=== PATIENT | male | born 1935 | race Caucasian/White ===

== ENCOUNTER 2023-09-30 20:51 | Emergency (ER) | payer MEDICARE, OTHER, SELFPAY ==
[2023-09-30 20:59] VITALS: BP 198/97
[2023-09-30 21:45] LABS: % Basophils 0.3 % (0-2); % Eosinophils 0.1 % (0-6); % Immature Granulocytes 0.4 % (0-0.5); % Lymphocytes 11.5 % (20.5-51.1); % Monocytes 11.5 % (1.7-9.3); % Neutrophils 76.2 % (42.2-75.2); Absolute Lymphocytes 0.8 10^3/uL (1.2-3.4); Absolute Monocytes 0.8 10^3/uL (0.1-0.6); Absolute Neutrophils 5.5 10^3/uL (1.4-6.5); Hematocrit 38.6 % (39.0-52.0); Hemoglobin 13.4 g/dL (13.0-18.0); Mean Corp Hgb Conc. 34.7 g/dL (33.0-37.0); Mean Corpuscular Volume 89.4 fL (80.0-94.0); Mean Platelet Volume 10.7 fL (7.4-10.4); Nucleated Red Blood Cells % 0 % (-); Platelet Count 134 10^3/uL (130-400); Red Blood Cell Count 4.32 10^6/uL (4.70-6.10); Red Cell Dist. Width 13.7 % (11.5-14.5); White Blood Cell Count 7.2 10^3/uL (4.8-10.8)
[2023-09-30 21:50] LABS: Urine Albumin Trace (Neg - Trace); Urine Bilirubin Negative (Negative); Urine Character Clear (Clear); Urine Color Yellow; Urine Glucose Negative (Negative); Urine Ketone Negative (Negative); Urine Leukocyte Negative (Negative); Urine Nitrite Negative (Negative); Urine Occult Blood 1+ (Negative); Urine Urobilinogen Negative (Neg - 1+)
[2023-09-30 21:51] LABS: COVID-19 Antigen Positive (Negative)
[2023-09-30 21:53] LABS: Lactic Acid 1.1 mmol/L (0.7-2.0)
[2023-09-30 21:55] LABS: ALT (SGPT) 19 U/L (0-50); AST (SGOT) 28 U/L (17-59); Albumin 4.4 g/dl (3.5-5.0); Alkaline Phosphatase 87 U/L (38-126); Blood Urea Nitrogen 22 mg/dl (9-20); Calcium 8.7 mg/dl (8.4-10.2); Carbon Dioxide 28 mmol/L (22-30); Chloride 95 mmol/L (98-107); Glucose 93 mg/dl (70-99); Potassium 4.4 mmol/L (3.5-5.1); Sodium 129 mmol/L (135-145); Total Bilirubin 1.1 mg/dl (0.2-1.3); Total Protein 6.9 g/dl (6.3-8.2); eGFR > 60.00
[2023-09-30 21:57] LABS: Urine White Cell None Seen /HPF (0-5)
--- NOTE | 2023-09-30 22:53 | ED.GENMED ---
History of Present Illness
General
Chief Complaint: Weakness
Source: patient and family
Time Seen by Provider: 09/30/23 22:51
Travel History
Have you had any contact with someone who has COVID-19?: No
Do you have any symptoms of coronavirus? Fever > 100 degrees, chills, cough, shortness of breath, sore throat, loss of taste or smell, muscle aches, or headache?: Yes
Symptoms:: weakness
History of Present Illness
History of Present Illness:
88-year-old male presents to the emergency room with weakness, confusion. He is felt feverish but his temperature was not measured. He does have mild cough and sore throat. Patient was originally at an urgent care but was referred to the hospital
for 'dehydration'. Patient is tolerating oral intake but has decreased appetite.
Past History
Past History
ED Past Medical History: Arrthythmia (Atrial fibrillation), Cancer (Prostate cancer), CHF and HTN
Social History
Tobacco: Former smoker
Alcohol: None
Drug: None
Phy Exam
Physical Exam
Physical Exam:
General: Awake, Alert, Oriented X3. No acute distress.
Vitals: Febrile
Head: Atraumatic
Eyes: Pupils equal, EOMI
Throat: Airway intact, no exudates, mildly dry mucosa
Neck: Trachea midline
Lungs: Clear and equal b/l
Heart: irregular rate, no murmurs
Abd: Soft, Nontender, No pulsatile mass
Neuro: Nonfocal
Skin: Warm, dry, no rash
Extremities: pulses equal b/l, no edema
Course
Orders/Labs/Results
Orders:
Orders
09/30/23 21:11
Electrocardiogram (*1) Urgent
Reason for Study: Other
Other Reason for Exam: Possible Sepsis
Cardiac Monitoring- Treatment ONCE
IV Insert/Care/Rem.- Treatment PRN
O2 Therapy [RESP] Urgent
Titrate/Wean O2 to maintain O2 sat greater than (%): 93
Special Instructions: TO MAINTAIN CONTINUOUS O2 SATS > OR = 93%
Pulse Ox/cont/shift [RESP] Urgent
Quantity: 1
Special Instructions: CONTINUOUS
09/30/23 21:12
EKG- Treatment ONCE
09/30/23 21:33
Complete Blood Count/With Diff Urgent
Lactic Acid Q4H
Comment: ON ICE, CANCEL 2ND ORDER IF FIRST LACTIC ACID LEVEL <2
Urinalysis Reflex To Culture Urgent
Date Specimen was Collected: 09/30/23
Time Specimen was Collected: 21:12
Urine Microscopic Reflex Cult Urgent
09/30/23 21:34
COVID-19 Antigen Urgent
Source: Nasal Swab
Comprehensive Metabolic Panel Urgent
Blood Culture Q30M
MEGGAN Source: Blood/Venous
Specimen Description:
Comment: FROM 2 SEPARATE SITES
INF RAPID [Influenza A+B Rapid Molecular] Urgent
MEGGAN Source: Nasal Swab
Specimen Description:
09/30/23 21:45
Blood Culture Q30M
MEGGAN Source: Blood/Venous
Specimen Description:
Comment: FROM 2 SEPARATE SITES
09/30/23 23:04
0.9% Sodium Chloride 500 ml [Nss] 500 ml IV BOLUS
Acetaminophen [Tylenol] 650 mg PO NOW STA
Abnormal Lab Results
09/30/23 09/30/23
21:33 21:34
RBC 4.32 L 10^6/uL
(4.70-6.10)
Hct 38.6 L %
(39.0-52.0)
MPV 10.7 H fL
(7.4-10.4)
Absolute Lymphs (auto) 0.8 L 10^3/uL
(1.2-3.4)
Absolute Monos (auto) 0.8 H 10^3/uL
(0.1-0.6)
Neutrophils % 76.2 H %
(42.2-75.2)
Lymphocytes % 11.5 L %
(20.5-51.1)
Monocytes % 11.5 H %
(1.7-9.3)
Sodium 129 L mmol/L
(135-145)
Chloride 95 L mmol/L
(98-107)
BUN 22 H mg/dl
(9-20)
Ur Occult Blood Reflex 1+ A
(Negative)
Urine RBC 3-6 A /HPF
(0-2)
SARS-CoV-2 Antigen Positive A
(Negative)
09/30/23 21:33
09/30/23 21:34
Vital Signs
Initial and Last Documented VS:
Initial Vital Signs
Temp Pulse Resp BP Pulse Ox
98.5 F 67 24 198/97 96
09/30/23 20:59 09/30/23 20:59 09/30/23 20:59 09/30/23 20:59 09/30/23 20:59
Last Documented Vital Signs
Temp Pulse Resp BP Pulse Ox
98.6 F 56 14 149/68 96
10/01/23 01:05 10/01/23 01:06 10/01/23 01:06 10/01/23 01:20 09/30/23 20:59
MDM/Problems Addressed
Differential Diagnosis Includes:
Influenza, COVID, UTI
MDM/Problems Addressed:
Patient presents with a fever. His COVID test is positive. We will hydrate and provide antipyretics and reevaluate. Remainder of his labs are significant only for mild hyponatremia.
After antipyretics and IV hydration the patient was feeling significantly better. He was able to ambulate to the bathroom at his normal Baseline. Family comfortable with him being discharged. Patient Is at about day 4 or 5 of COVID. He has
medications which interact with Paxlovid so we will therefore not prescribe.
Chronic conditions affecting care: HTN and CAD
*Pulse Oximetry
Patient hypoxic: no
*EKG
Interpreted by ED Provider?: Yes
Interpretation: abnormal
Heart Rate: 64
Rate: normal
Rhythm: a-fib
QRS Pattern: right bundle branch block (incomplete)
Ischemia: no ischemia
*Gate Operator Interpretation
Rate: normal
Interpretation: abnormal
Rhythm: a-fib
*Critical Care Note
Total Time (30-74mins, 75-104mins- exclusive of procedures): Not Applicable
Patient Management
Social determinants of health affecting care: Strong social support
ED Attending Note
-
Portions of this chart may have been created with voice recognition software.� Occasional wrong word or��sound alike� substitutions may have occurred due to the inherent limitations of voice recognition software.
Discharge Plan
Departure
Patient Disposition: Home (Routine Discharge)
Date of Disposition: 10/01/23
Time of Disposition: 01:14
Patient with high blood pressure during this ER visit?: No
Condition: Good
Discharge Problem:
COVID-19
Instructions: COVID-19 ED
Referrals:
Sinan Florez MD [Family Provider] -
Interventions
Interventions:
*Risk Screen - Suicide Last Done: 09/30/23 20:59
*General Assessment Last Done: 09/30/23 20:59
*Neglect/Abuse Screening Last Done: 09/30/23 20:59
ED- Fall Risk Assessment Last Done: 09/30/23 20:59
*ED COVID-19 Vaccine History Last Done: 09/30/23 20:59
*Nursing Disposition Last Done: 10/01/23 01:34
ED- Cardiac Assessment Last Done: 09/30/23 23:46
ED- Neurological Assessment Last Done: 09/30/23 23:46
ED- Pulmonary Assessment Last Done: 09/30/23 23:46
Discharge Date and Time
Discharge Date/Time: 10/01/23 01:34
[2023-09-30] MEDS: TYLENOL 650 MG PO (23:21)
[2023-09-30] MEDS: NSS 500 IV (23:21)
[2023-09-30 23:26] VITALS: BP 129/117
[2023-10-01] VITALS: BP 129/64
[2023-10-01 01:00] VITALS: BP 131/71
[2023-10-01 01:20] VITALS: BP 149/68
== END 2023-10-01 01:34 | disposition home or self-care (01) ==
LOC: EMR 20:51
PROVIDERS: Emergency Medicine; EMERGENCY PHYSICIAN Emergency Medicine; FAMILY PHYSICIAN Family Medicine
DX: U07.1 COVID-19 (principal); I11.0 Hypertensive heart disease with heart failure; I25.10 Atherosclerotic heart disease of native coronary artery without angina pectoris; I50.9 Heart failure, unspecified; E87.1 Hypo-osmolality and hyponatremia; Z87.891 Personal history of nicotine dependence
CPT/HCPCS: 99284; 80053; 81003; 81015; 83605; 85025; 87040; 87502; 87811; 93005